=== PATIENT | female | born 1955 | race Caucasian/White ===

== ENCOUNTER 2020-09-10 09:49 | Emergency (ER) | payer MEDICARE, OTHER ==
[~2020-09-10 09:49] MED LIST: LIPITOR 10MG TA10 MG PO; LISINOPRIL-HCT1 EAC2 PO; NORCO 5-325 TA1 EACH PO; NORVASC5 MG PO; POTASSIUM CHLO10 MEQ PO; SYNTHROID137 MCG PO; TOPROL XL100 MG PO
[2020-09-10] MEDS ORDERED: CEPHALEXIN500 MG PO (11:17)
[2020-09-10] MEDS ORDERED: NORCO 5-325 TA1 EACH PO (11:17)
== END 2020-09-10 11:54 | disposition home or self-care (01) ==
LOC: FER 09:49
DX: T22.212A Burn of second degree of left forearm, initial encounter (principal); T31.0 Burns involving less than 10% of body surface; I10 Essential (primary) hypertension; X08.8XXA Exposure to other specified smoke, fire and flames, initial encounter; Z79.82 Long term (current) use of aspirin; Z79.899 Other long term (current) drug therapy